=== PATIENT | male | born 1950 | race Caucasian/White ===

== ENCOUNTER → 2017-09-19 | Outpatient (CLI) | payer OTHER, MEDICARE | END | disposition home or self-care (01) | LOC: SUS 08:48 | PROVIDERS: ATTEND Physician Assistant Surgical | DX: K82.4 Cholesterolosis of gallbladder (principal); R74.0 Nonspecific elevation of levels of transaminase and lactic acid dehydrogenase [LDH] | CPT/HCPCS: 76700-TC ==